=== PATIENT | male | born 1975 | race Caucasian/White ===

== ENCOUNTER 2020-03-19 21:44 | Emergency (ER) | payer BC, OTHER ==
[~2020-03-19] VITALS: Ht 190.5 cm; Wt 102.0 kg
[2020-03-19] MEDS ORDERED: GNP200CA2 PO (21:49)
[2020-03-19] MEDS ORDERED: MUCI1TAB16 PO (21:49)
[2020-03-19] MEDS ORDERED: GI COCKTAIL 50ML BTL(HYOSCYAMINE/MAALOX/LIDOCAINE VISCOUS)(1:3:1) PO ONE (22:45)
[2020-03-19] MEDS ORDERED: ASPIRIN 81 MG CHEW TABLET PO ONE (22:45)
[2020-03-19] MEDS ORDERED: METOCLOPRAMIDE INJ 10MG/2ML VIAL (J2765 PER 1) IV ONE (22:45)
[2020-03-19] MEDS ORDERED: NS 1,000 ML IV ONE (22:45)
[2020-03-19 23:00] LABS: BASO # 0.1 10^3/uL (0.0-0.2); BASO % 0.5 % (0.0-1.0); EOS # 0.2 10^3/uL (0.0-0.5); EOS % 1.6 % (0.0-3.0); HEMATOCRIT 44.6 % (42.0-52.0); HEMOGLOBIN 15.4 g/dl (13.5-17.5); LYMPH # 3.5 10^3/uL (1.5-5.0); LYMPH % 30.9 % (24.0-44.0); MEAN CORPUSCULAR HEMOGLOBIN 31.3 pg (27.0-33.0); MEAN CORPUSCULAR HGB CONC 34.5 g/dl (32.0-36.5); MEAN CORPUSCULAR VOLUME 90.7 fl (80.0-96.0); MONO # 0.7 10^3/uL (0.0-0.8); NEUTROPHILS # 6.9 10^3/uL (1.5-8.5); NEUTROPHILS % 60.6 % (36.0-66.0); PLATELET COUNT, AUTOMATED 239 10^3/uL (150-450); RED BLOOD COUNT 4.92 10^6/uL (4.30-6.10); WHITE BLOOD COUNT 11.4 10^3/uL (4.0-10.0)
[2020-03-19] MEDS ORDERED: ISOVUE-370 76% 100ML VIAL As Ordered ONE (23:16)
[2020-03-19 23:19] LABS: ERYTHROCYTE SEDIMENTATION RATE 4 mm/hr (0-15)
[2020-03-19 23:37] LABS: ALBUMIN 3.6 GM/DL (3.2-5.2); ALT/SGPT 24 U/L (12-78); BILIRUBIN,DIRECT < 0.1 MG/DL (0.0-0.2); BILIRUBIN,TOTAL 0.4 MG/DL (0.2-1.0); BLOOD UREA NITROGEN 18 MG/DL (7-18); C REACTIVE PROTEIN QUANTITATIV < 0.30 MG/DL (0.00-0.30); CALCIUM LEVEL 8.7 MG/DL (8.5-10.1); CARBON DIOXIDE LEVEL 26 MEQ/L (21-32); CHLORIDE LEVEL 107 MEQ/L (98-107); CK-MB VALUE MASS < 1.0 NG/ML (<3.6); CPK CREATINE PHOSPHOKINASE 82 U/L (39-308); CREATININE FOR GFR 1.13 MG/DL (0.70-1.30); GLOMERULAR FILTRATION RATE > 60.0 (>60); GLUCOSE, FASTING 94 MG/DL (70-100); LIPASE 120 U/L (73-393); MB/CK RELATIVE INDEX 1.22 (< OR =4); POTASSIUM SERUM 3.9 MEQ/L (3.5-5.1); SODIUM LEVEL 138 MEQ/L (136-145); TOTAL PROTEIN 6.7 GM/DL (6.4-8.2); TROPONIN I < 0.02 NG/ML (< 0.10)
--- NOTE | 2020-03-20 00:11 | REPVR ---
PROCEDURE INFORMATION: Exam: CT Angiography Chest With Contrast Exam date and time: 03/19/2020 10:37 PM Age: 44 years old Clinical indication: Other: Cold/flu symptoms. Additional info: R/O pe TECHNIQUE: Imaging protocol: Computed tomographic angiography of the chest with intravenous contrast. 3D rendering: MIP and/or 3D reconstructed images were created by the technologist. Radiation optimization: All CT scans at this facility use at least one of these dose optimization techniques: automated exposure control; mA and/or kV adjustment per patient size (includes targeted exams where dose is matched to clinical indication); or iterative reconstruction. Contrast material: ISO; Contrast volume: 75 ml; Contrast route: AC; COMPARISON: CR PORTABLE CHEST X-RAY 03/19/2020 10:59 PM FINDINGS: Pulmonary arteries: Normal. No pulmonary emboli. Great vessels off aortic arch: Incidental aberrant right subclavian artery. Aorta: Suboptimal opacificatione of the aorta. No aortic aneurysm. Tracheobronchial tree: Visualized airway is unremarkable. Lungs: Mild paraseptal blebs in the upper lobes. Dependent atelectasis in the lung. No acute consolidation. Pleural space: Unremarkable. No pneumothorax. No pleural effusion. Heart: Unremarkable. No cardiomegaly. No pericardial effusion. Liver: Circumscribed fluid density lesion in the right hepatic lobe measuring 1.7 cm. Several other smaller hypodense lesions which are too small to further characterize measuring up to 6 mm. Lymph nodes: Unremarkable. No enlarged lymph nodes. Bones/joints: Unremarkable. No acute fracture. Soft tissues: Unremarkable. IMPRESSION: 1. No evidence of pulmonary embolism. 2. Several circumscribed fluid density lesions in the liver. No further follow-up is recommended for the largest hypodense lesion. In a low-risk patient, the smaller lesions are most likely to be benign and no further follow-up is recommended. In a high-risk patient, recommend follow-up MRI in 3-6 months (or earlier if warranted by the patient's specific clinical circumstances). 3. Mild emphysematous lung disease. Electronically signed by: Jurgen Aguiar On 03/20/2020 00:11:00 AM
[2020-03-20] MEDS ORDERED: BREAMIS10 MC (01:03)
[2020-03-20] MEDS ORDERED: PROAAER10 INH (01:03)
[2020-03-20] MEDS ORDERED: methylPREDNISolone INJ 125 MG/2 ML VIAL (J2930) IV ONE (01:15)
[2020-03-20] MEDS ORDERED: ALBUTEROL 90 MCG/ACT 8GM HFA INHALER INH ONE (01:15)
[2020-03-20 01:30] VITALS: BP 130/69
--- NOTE | 2020-03-20 02:29 | REP ---
Clinical: Acute chest pain . Comparison: None of the . Findings: The mediastinum and cardiac silhouette are stable and within normal limits for portable technique. The lung gresham are clear without acute consolidation, effusion, or pneumothorax. Skeletal structures are intact. Impression: No acute cardiopulmonary process appreciated. Electronically Signed by Joss Lerma MD 03/20/2020 02:20 A
--- NOTE | 2020-03-20 13:47 | ED PDOC ---
Post-Departure Follow-Up certified letter sent to pt re formal read of cta chest. please see report. obta in pcp name and fax and ensure follow up. if no pcp refer to [facility], fax and ensure pt has numbers mlg Faustino Parker MD Mar 20, 2020 13:47
--- NOTE | 2020-03-20 14:01 | ECGEPIP ---
[facility] - ED Test Date: 2020-03-19 Pat Name: GINNY FITZGERALD Department: Room: - Gender: Male [employer]: LUCAS : 1975 Requested By: JONATHAN Green Order Number: [id number] Reading MD: Nayla Cedillo Measurements Intervals [place] Rate: 71 P: 58 DC: 140 QRS: 7 QRSD: 98 T: 38 QT: 374 QTc: 408 Interpretive Statements SINUS RHYTHM NO PRIOR Electronically Signed on 03-20-2020 14:01:39 EDT by Nayla Cedillo
== END 2020-03-20 01:34 | disposition home or self-care (01) ==
LOC: M ED 21:44
DX: R51 Headache (principal); R07.89 Other chest pain; R06.09 Other forms of dyspnea; R05 Cough; F17.218 Nicotine dependence, cigarettes, with other nicotine-induced disorders
CPT/HCPCS: 36415; 71045; 71275; 80048; 80076; 82550; 82553; 83690; 84484; 85025; 85652; 86140; 87040; 93005; 93041; 94640; 94760; 96361; 96374; 96375; 99284; J2765; J2930; Q9967

== ENCOUNTER → 2020-03-23 | Outpatient (CLI) | payer BC, OTHER ==
[~2020-03-23] MED LIST: BREAMIS10 MC; GNP200CA2 PO; MUCI1TAB16 PO; PROAAER10 INH
== END ==
LOC: M LABSMTC 13:57
PROVIDERS: ATTEND Family Medicine
DX: Z11.59 Encounter for screening for other viral diseases (principal); Z20.828 Contact with and (suspected) exposure to other viral communicable diseases

== ENCOUNTER → 2020-03-25 | Outpatient (REF) | payer OTHER ==
[2020-03-25 17:30] LABS: BASO # 0.1 10^3/uL (0.0-0.2); BASO % 0.6 % (0.0-1.0); EOS # 0.2 10^3/uL (0.0-0.5); EOS % 1.7 % (0.0-3.0); HEMATOCRIT 48.1 % (42.0-52.0); HEMOGLOBIN 16.5 g/dl (13.5-17.5); LYMPH # 2.6 10^3/uL (1.5-5.0); LYMPH % 25.9 % (24.0-44.0); MEAN CORPUSCULAR HEMOGLOBIN 31.7 pg (27.0-33.0); MEAN CORPUSCULAR HGB CONC 34.3 g/dl (32.0-36.5); MEAN CORPUSCULAR VOLUME 92.3 fl (80.0-96.0); MONO # 0.4 10^3/uL (0.0-0.8); MONO % 4.3 % (0.0-5.0); NEUTROPHILS # 6.9 10^3/uL (1.5-8.5); NEUTROPHILS % 67.3 % (36.0-66.0); PLATELET COUNT, AUTOMATED 255 10^3/uL (150-450); RED BLOOD COUNT 5.21 10^6/uL (4.30-6.10); WHITE BLOOD COUNT 10.2 10^3/uL (4.0-10.0)
[2020-03-25 17:40] LABS: ALBUMIN 3.7 GM/DL (3.2-5.2); ALT/SGPT 21 U/L (12-78); BILIRUBIN,TOTAL 0.3 MG/DL (0.2-1.0); BLOOD UREA NITROGEN 11 MG/DL (7-18); CALCIUM LEVEL 8.7 MG/DL (8.5-10.1); CARBON DIOXIDE LEVEL 26 MEQ/L (21-32); CHLORIDE LEVEL 105 MEQ/L (98-107); CPK CREATINE PHOSPHOKINASE 69 U/L (39-308); CREATININE FOR GFR 0.98 MG/DL (0.70-1.30); FREE T4 1.08 NG/DL (0.76-1.46); GLOMERULAR FILTRATION RATE > 60.0 (>60); GLUCOSE, FASTING 86 MG/DL (70-100); POTASSIUM SERUM 4.1 MEQ/L (3.5-5.1); SODIUM LEVEL 138 MEQ/L (136-145); TOTAL PROTEIN 6.7 GM/DL (6.4-8.2)
[2020-03-28 00:07] LABS: Lyme Disease IgG/IgM Antibodie <0.91 ISR (0.00-0.90); Lyme Disease IgM Ab Quantitati <0.80 index (0.00-0.79)
== END ==
LOC: M LABDRWAD 16:45
PROVIDERS: ATTEND Physician Assistant
DX: M79.10 Myalgia, unspecified site (principal); R53.83 Other fatigue; J20.9 Acute bronchitis, unspecified

== ENCOUNTER → 2020-04-10 | Outpatient (REF) | payer OTHER ==
[2020-04-12 00:06] LABS: ANA (HEP2) Negative (.)
== END ==
LOC: M SFHCADAM 10:42
PROVIDERS: ATTEND Physician Assistant
DX: G43.009 Migraine without aura, not intractable, without status migrainosus (principal); M25.50 Pain in unspecified joint

== ENCOUNTER → 2020-04-28 | Outpatient (CLI) | payer BC, OTHER ==
--- NOTE | 2020-04-28 16:55 | REPVR ---
PROCEDURE INFORMATION: Exam: MR Head Without Contrast Exam date and time: 04/28/2020 4:15 PM Age: 44 years old Clinical indication: Pain; Headache; Migraine; Aura effect not specified; Does respond to medication; Severity not specified TECHNIQUE: Imaging protocol: MR of the head without contrast. COMPARISON: No relevant prior studies available. FINDINGS: Brain: There is no acute intracranial hemorrhage, cerebral edema, or midline shift. No restricted diffusion is present to suggest acute infarction. Ventricles: No hydrocephalus. Bones/joints: Unremarkable. Sinuses: Mild mucosal thickening and small mucous retention cysts are noted in the maxillary sinuses. Mastoid air cells: Normal as visualized. No mastoid effusion. Orbits: Unremarkable. Soft tissues: Unremarkable. IMPRESSION: No acute intracranial abnormality. Electronically signed by: Mt Mueller On 04/28/2020 16:55:20 PM
== END ==
LOC: M RAD 13:50
PROVIDERS: ATTEND Physician Assistant
DX: G43.009 Migraine without aura, not intractable, without status migrainosus (principal)

== ENCOUNTER → 2020-10-16 | Outpatient (CLI) | payer BC, OTHER ==
--- NOTE | 2020-10-16 16:29 | REP ---
INDICATION: LIVER LESION. COMPARISON: CT 03/19/2020. TECHNIQUE: Multiple sequences obtained in the axial coronal planes. IV contrast was not administered. FINDINGS: In the posterior segment of the right lobe of the liver there is a T2 hyperintense nodule oval in shape measuring 2.1 x 1.5 cm. This is essentially unchanged compared to the CT exam and is most consistent with a cyst. More anteriorly in the right lobe at the same level there is a presumed tiny cyst measuring 4-5 mm in diameter, also unchanged. A similar size hyperintensity 4-5 mm in diameter is also stable at the right dome of the liver. No other definite liver lesion is seen. The gallbladder is grossly unremarkable with no filling defect. There is no biliary dilatation. The spleen is normal in size with no intrinsic abnormality. The adrenal glands are normal. The pancreas is unremarkable with no pancreatic duct dilatation or evidence of mass. There is a cyst of the lower pole of the left kidney laterally which measures approximately 1.4 cm in diameter. A subcentimeter cyst is seen anteriorly in the left upper pole. There is no hydronephrosis. There is no adenopathy or free fluid in the abdomen. IMPRESSION: In the posterior segment of the right lobe of the liver a T2 hyperintense nodule is most consistent with a cyst. It appears unchanged in size, measuring approximately 2.1 x 1.5 cm. Two subcentimeter hyperintense nodules in the right lobe of the liver, also likely representing cysts, are stable. There are 2 left renal cysts. There are no other significant findings. Based on imaging characteristics no follow-up is needed. Follow-up should be based on clinical grounds. <Electronically signed by Sundeep Galvin > 10/16/20 1211
== END ==
LOC: M RAD 06:39
PROVIDERS: ATTEND Physician Assistant
DX: K76.89 Other specified diseases of liver (principal); N28.1 Cyst of kidney, acquired

== ENCOUNTER → 2020-12-23 | Outpatient (CLI) | payer BC, OTHER ==
[~2020-12-23] MED LIST changes: -GNP200CA2 PO; +IBUP200C90 PO
--- NOTE | 2020-12-24 05:25 | REP ---
INDICATION: NECK PAIN. COMPARISON: None. TECHNIQUE: AP, lateral, bilateral oblique, flexion/extension, and open mouth views of the cervical spine. FINDINGS: Alignment and lordosis maintained. Vertebral bodies intact. Disc spaces are normal. No acute fracture/compression injury or subluxation. No significant degenerative changes. Open mouth view demonstrates normal C1-C2 articulation and odontoid process. Oblique views demonstrate patent neural foramen. IMPRESSION: Age-appropriate cervical spine series. <Electronically signed by Joss Lerma > 12/24/20 [id number]
== END ==
LOC: M ADAMS 09:01
PROVIDERS: ATTEND Physician Assistant
DX: M54.2 Cervicalgia (principal)

== ENCOUNTER → 2020-12-23 | Outpatient (REF) | payer OTHER ==
[2020-12-23 13:54] LABS: BASO # 0.1 10^3/uL (0.0-0.2); BASO % 0.7 % (0.0-1.0); EOS # 0.2 10^3/uL (0.0-0.5); EOS % 2.2 % (0.0-3.0); HEMATOCRIT 45.9 % (42.0-52.0); HEMOGLOBIN 15.4 g/dl (13.5-17.5); LYMPH # 1.9 10^3/uL (1.5-5.0); LYMPH % 21.1 % (24.0-44.0); MEAN CORPUSCULAR HEMOGLOBIN 30.6 pg (27.0-33.0); MEAN CORPUSCULAR HGB CONC 33.6 g/dl (32.0-36.5); MEAN CORPUSCULAR VOLUME 91.3 fl (80.0-96.0); MONO # 0.7 10^3/uL (0.0-0.8); MONO % 8.1 % (0.0-5.0); NEUTROPHILS # 6.1 10^3/uL (1.5-8.5); NEUTROPHILS % 67.6 % (36.0-66.0); PLATELET COUNT, AUTOMATED 221 10^3/uL (150-450); RED BLOOD COUNT 5.03 10^6/uL (4.30-6.10)
[2020-12-23 14:11] LABS: BLOOD UREA NITROGEN 15 MG/DL (7-18); C REACTIVE PROTEIN QUANTITATIV 0.38 MG/DL (0.00-0.30); CALCIUM LEVEL 9.4 MG/DL (8.5-10.1); CARBON DIOXIDE LEVEL 26 MEQ/L (21-32); CHLORIDE LEVEL 107 MEQ/L (98-107); CREATININE FOR GFR 1.04 MG/DL (0.70-1.30); GLOMERULAR FILTRATION RATE > 60.0 (>60); GLUCOSE, FASTING 86 MG/DL (70-100); POTASSIUM SERUM 4.1 MEQ/L (3.5-5.1); SODIUM LEVEL 141 MEQ/L (136-145)
[2020-12-23 15:11] LABS: ERYTHROCYTE SEDIMENTATION RATE 5 mm/hr (0-15)
== END ==
LOC: M SFHCADAM 08:55
PROVIDERS: ATTEND Physician Assistant
DX: M54.2 Cervicalgia (principal)

== ENCOUNTER 2022-04-20 10:46 | Emergency (ER) | payer BC, OTHER ==
[~2022-04-20] VITALS: Ht 193 cm; Wt 110.0 kg
[2022-04-20] MEDS ORDERED: IBUP200C28 PO (10:58)
[2022-04-20] MEDS ORDERED: KETOROLAC 30 MG/ML 1ML VIAL IM ONE (12:30)
[2022-04-20 13:00] VITALS: BP 144/84
== END 2022-04-20 13:02 | disposition home or self-care (01) ==
LOC: M ED 10:46
DX: S90.32XA Contusion of left foot, initial encounter (principal); W49.9XXA Exposure to other inanimate mechanical forces, initial encounter; F17.200 Nicotine dependence, unspecified, uncomplicated; Y92.9 Unspecified place or not applicable; Y93.9 Activity, unspecified; Y99.9 Unspecified external cause status
CPT/HCPCS: 73630; 96372; 99284; J1885

== ENCOUNTER 2022-04-28 16:56 | Emergency (ER) | payer BC, OTHER ==
[~2022-04-28] VITALS: Ht 193 cm; Wt 106.8 kg
[~2022-04-28 16:56] MED LIST changes: +IBUP200C28 PO
[2022-04-28 16:57] VITALS: BP 122/66
== END 2022-04-28 21:03 | disposition left against medical advice (07) ==
LOC: M ED 16:56
DX: Z53.21 Procedure and treatment not carried out due to patient leaving prior to being seen by health care provider (principal)

== ENCOUNTER → 2022-05-05 | Outpatient (CLI) | payer BC, OTHER ==
[~2022-05-05] MED LIST changes: +GASTROGRAFIN SOLUTION 30ML (Q9963) As Ordered ONE; +ISOVUE-370 76% 100ML VIAL As Ordered ONE
[2022-05-05 13:53] LABS: BASO # 0.1 10^3/uL (0.0-0.2); BASO % 0.9 % (0.0-1.0); EOS # 0.2 10^3/uL (0.0-0.5); EOS % 1.7 % (0.0-3.0); HEMATOCRIT 43.7 % (42.0-52.0); HEMOGLOBIN 15.2 g/dl (13.5-17.5); LYMPH # 2.6 10^3/uL (1.5-5.0); LYMPH % 28.4 % (24.0-44.0); MEAN CORPUSCULAR HGB CONC 34.8 g/dl (32.0-36.5); MONO # 0.5 10^3/uL (0.0-0.8); MONO % 5.6 % (2.0-8.0); NEUTROPHILS # 5.9 10^3/uL (1.5-8.5); NEUTROPHILS % 63.2 % (36.0-66.0); PLATELET COUNT, AUTOMATED 240 10^3/uL (150-450); RED BLOOD COUNT 4.91 10^6/uL (4.30-6.10); WHITE BLOOD COUNT 9.3 10^3/uL (4.0-10.0)
[2022-05-05 14:24] LABS: ALBUMIN 3.5 GM/DL (3.2-5.2); ALT/SGPT 23 U/L (12-78); BILIRUBIN,TOTAL 0.3 MG/DL (0.2-1.0); BLOOD UREA NITROGEN 10 MG/DL (7-18); CALCIUM LEVEL 8.3 MG/DL (8.5-10.1); CARBON DIOXIDE LEVEL 26 MEQ/L (21-32); CHLORIDE LEVEL 108 MEQ/L (98-107); GLOMERULAR FILTRATION RATE > 60.0 (>60); GLUCOSE, FASTING 83 MG/DL (70-100); POTASSIUM SERUM 4.5 MEQ/L (3.5-5.1); SODIUM LEVEL 138 MEQ/L (136-145); TOTAL PROTEIN 6.5 GM/DL (6.4-8.2)
== END ==
LOC: M RAD 11:56
PROVIDERS: ATTEND Physician Assistant
DX: K62.5 Hemorrhage of anus and rectum (principal); K63.5 Polyp of colon; R10.13 Epigastric pain
CPT/HCPCS: 36415; 74177; 80053; 85025; Q9963; Q9967

== ENCOUNTER → 2022-05-05 | Outpatient (REF) | payer OTHER ==
[~2022-05-05] MED LIST changes: -GASTROGRAFIN SOLUTION 30ML (Q9963) As Ordered ONE; -ISOVUE-370 76% 100ML VIAL As Ordered ONE
== END ==
LOC: M SFHCADAM 10:35
PROVIDERS: ATTEND Physician Assistant
DX: K62.5 Hemorrhage of anus and rectum (principal); K63.5 Polyp of colon; R10.13 Epigastric pain; Z53.9 Procedure and treatment not carried out, unspecified reason

== ENCOUNTER → 2022-06-10 | Outpatient (CLI) | payer BC, OTHER ==
[2022-06-10 16:40] LABS: FREE THYROXINE INDEX 3.3 % (1.4-3.8); THYROID STIMULATING HORMONE 0.971 uIU/ML (0.358-3.740); THYROXINE (T4) 10.3 UG/DL (4.5-12.0)
[2022-06-10 17:18] LABS: FOLATE 6.5 NG/ML
[2022-06-10 17:39] LABS: HEMOGLOBIN A1c 5.2 %
== END ==
LOC: M PLALAB 12:01
PROVIDERS: ATTEND Psychiatry & Neurology Neurology
DX: E07.9 Disorder of thyroid, unspecified (principal); E11.9 Type 2 diabetes mellitus without complications; E53.8 Deficiency of other specified B group vitamins

== ENCOUNTER → 2022-07-24 | Outpatient (CLI) | payer BC, OTHER ==
[~2022-07-24] MED LIST changes: +TOPI1CAP8 PO
== END ==
LOC: M LABSMTC 11:00
PROVIDERS: ATTEND Anesthesiology
DX: Z01.818 Encounter for other preprocedural examination (principal); Z11.52 Encounter for screening for COVID-19

== ENCOUNTER 2022-07-28 08:22 | Day surgery (SDC) | payer BC, OTHER ==
[~2022-07-28] VITALS: Ht 193 cm; Wt 107.5 kg
[~2022-07-28 08:22] MED LIST changes: +LIDOCAINE 2% 100MG/5ML SDV (FOR ANES.) As Ordered ONE; +NS 1,000 ML IV ONE; +fentaNYL 100 MCG/2 ML INJECTION As Ordered ONE; +propofoL 500 MG/50 ML VIAL As Ordered ONE
[2022-07-28] MEDS ORDERED: propofoL 200 MG/20 ML VIAL As Ordered ONE (09:52)
[2022-07-28 10:20] VITALS: BP 118/68
== END 2022-07-28 10:24 | disposition home or self-care (01) ==
LOC: M OPP 08:22
PROVIDERS: ATTEND Surgery
DX: K63.5 Polyp of colon (principal); K62.5 Hemorrhage of anus and rectum; K31.A0 Gastric intestinal metaplasia, unspecified; K21.00 Gastro-esophageal reflux disease with esophagitis, without bleeding; F17.200 Nicotine dependence, unspecified, uncomplicated; Z79.899 Other long term (current) drug therapy
CPT/HCPCS: 43239; 45385; 88305; J3010

== ENCOUNTER → 2024-05-22 | Outpatient (CLI) | payer BC ==
[~2024-05-22] MED LIST changes: -LIDOCAINE 2% 100MG/5ML SDV (FOR ANES.) As Ordered ONE; -NS 1,000 ML IV ONE; -fentaNYL 100 MCG/2 ML INJECTION As Ordered ONE; -propofoL 500 MG/50 ML VIAL As Ordered ONE
== END ==
LOC: M PLAIMG 16:15
PROVIDERS: ATTEND Physician Assistant Medical
DX: M25.722 Osteophyte, left elbow (principal); M25.522 Pain in left elbow

== ENCOUNTER → 2024-06-06 | Outpatient (REF) | payer OTHER ==
[2024-06-06 18:55] LABS: APPEARANCE, URINE CLEAR (CLEAR); BACTERIA, URINE AUTO 1+ (NEGATIVE); BILIRUBIN, URINE AUTO NEGATIVE (NEGATIVE); BLOOD, URINE BLOOD NEGATIVE (NEGATIVE); COLOR, URINE YELLOW (YELLOW); GLUCOSE, URINE (UA) AUTO NEGATIVE (NEGATIVE); KETONE, URINE AUTO NEGATIVE (NEGATIVE); LEUKOCYTE ESTERASE, URINE AUTO TRACE (NEGATIVE); NITRITE, URINE AUTO NEGATIVE (NEGATIVE); PROTEIN, URINE AUTO NEGATIVE (NEGATIVE); RBC, URINE AUTO 0 /HPF (0-3); SPECIFIC GRAVITY URINE AUTO 1.005 (1.002-1.035); SQUAMOUS EPITHELIAL CELL UR AU 0 /HPF (0-6); UROBILINOGEN, URINE AUTO 0.2 mg/dL (0.0-2.0); WBC, URINE AUTO 3 /HPF (0-3)
== END ==
LOC: M SFHCADAM 17:07
PROVIDERS: ATTEND Physician Assistant
DX: R35.0 Frequency of micturition (principal)

== ENCOUNTER → 2024-06-13 | Outpatient (REF) | payer BC ==
[2024-06-13 18:03] LABS: BASO # 0.1 10^3/uL (0.0-0.2); BASO % 0.6 % (0.0-1.0); EOS # 0.2 10^3/uL (0.0-0.5); HEMATOCRIT 43.1 % (42.0-52.0); HEMOGLOBIN 14.6 g/dl (13.5-17.5); LYMPH # 2.9 10^3/uL (1.5-5.0); LYMPH % 27.6 % (24.0-44.0); MEAN CORPUSCULAR HEMOGLOBIN 30.5 pg (27.0-33.0); MEAN CORPUSCULAR HGB CONC 33.9 g/dl (32.0-36.5); MEAN CORPUSCULAR VOLUME 90.2 fl (80.0-96.0); MONO # 0.6 10^3/uL (0.0-0.8); NEUTROPHILS # 6.8 10^3/uL (1.5-8.5); NEUTROPHILS % 63.5 % (36.0-66.0); PLATELET COUNT, AUTOMATED 262 10^3/uL (150-450); RED BLOOD COUNT 4.78 10^6/uL (4.30-6.10); WHITE BLOOD COUNT 10.7 10^3/uL (4.0-10.0)
[2024-06-13 18:16] LABS: ERYTHROCYTE SEDIMENTATION RATE 11 mm/hr (0-15)
[2024-06-13 18:23] LABS: PSA SCREENING 2.07 NG/ML (< 4.00)
[2024-06-13 18:32] LABS: ALBUMIN 3.5 G/DL (3.2-5.2); ALKALINE PHOSPHATASE 92 U/L (46-116); ALT/SGPT 20 U/L (7.0-40); AST/SGOT < 8 U/L (<34); BILIRUBIN,TOTAL 0.2 MG/DL (0.3-1.2); BLOOD UREA NITROGEN 10 MG/DL (9-23); CALCIUM LEVEL 8.5 MG/DL (8.5-10.1); CARBON DIOXIDE LEVEL 25 MMOL/L (20-31); CHLORIDE LEVEL 107 MMOL/L (98-107); CHOLESTEROL LEVEL 170 MG/DL (<200); CHOLESTEROL RISK RATIO 5.96 (<5); CREATININE FOR GFR 0.97 MG/DL (0.70-1.30); GLOMERULAR FILTRATION RATE > 60.0 (>60); GLUCOSE, FASTING 97 MG/DL (60-100); HDL CHOLESTEROL 28.5 MG/DL (>40); LDL CHOLESTEROL 103.9 MG/DL (<100); NON-HDL-C 141.5 MG/DL; POTASSIUM SERUM 3.9 MMOL/L (3.5-5.1); SODIUM LEVEL 140 MMOL/L (136-145); TOTAL PROTEIN 6.1 G/DL (5.7-8.2); TRIGLYCERIDES LEVEL 188 MG/DL (<150)
[2024-06-13 18:44] LABS: HEMOGLOBIN A1c 5.1 % (4.0-6.0)
== END ==
LOC: M SFHCADAM 15:24
PROVIDERS: ATTEND Physician Assistant
DX: R35.0 Frequency of micturition (principal); M25.50 Pain in unspecified joint; F17.210 Nicotine dependence, cigarettes, uncomplicated; Z13.220 Encounter for screening for lipoid disorders; Z68.28 Body mass index [BMI] 28.0-28.9, adult; Z13.1 Encounter for screening for diabetes mellitus; R39.14 Feeling of incomplete bladder emptying; N40.1 Benign prostatic hyperplasia with lower urinary tract symptoms
CPT/HCPCS: 80053; 80061; 83036; 85025; 85652; 86140; 86618; G0103

== ENCOUNTER → 2024-06-27 | Outpatient (REF) | payer BC ==
[2024-06-27 18:27] LABS: APPEARANCE, URINE CLEAR (CLEAR); BACTERIA, URINE AUTO NEGATIVE (NEGATIVE); BILIRUBIN, URINE AUTO NEGATIVE (NEGATIVE); BLOOD, URINE BLOOD NEGATIVE (NEGATIVE); COLOR, URINE YELLOW (YELLOW); GLUCOSE, URINE (UA) AUTO NEGATIVE (NEGATIVE); KETONE, URINE AUTO NEGATIVE (NEGATIVE); LEUKOCYTE ESTERASE, URINE AUTO NEGATIVE (NEGATIVE); NITRITE, URINE AUTO NEGATIVE (NEGATIVE); PROTEIN, URINE AUTO NEGATIVE (NEGATIVE); RBC, URINE AUTO 0 /HPF (0-3); SPECIFIC GRAVITY URINE AUTO 1.009 (1.002-1.035); SQUAMOUS EPITHELIAL CELL UR AU 0 /HPF (0-6); UROBILINOGEN, URINE AUTO 0.2 mg/dL (0.0-2.0); WBC, URINE AUTO 1 /HPF (0-3)
== END ==
LOC: M SFHCADAM 16:47
PROVIDERS: ATTEND Physician Assistant
DX: R35.0 Frequency of micturition (principal)

== ENCOUNTER → 2024-07-01 | Outpatient (CLI) | payer BC | LOC: M RAD 14:01 | PROVIDERS: ATTEND Physician Assistant | DX: R35.0 Frequency of micturition (principal) ==

== ENCOUNTER → 2024-07-23 | Outpatient (CLI) | payer BC | LOC: M RAD 11:08 | PROVIDERS: ATTEND Physician Assistant | DX: N40.1 Benign prostatic hyperplasia with lower urinary tract symptoms (principal); N28.1 Cyst of kidney, acquired; R35.0 Frequency of micturition ==

== ENCOUNTER → 2025-08-01 | Outpatient (REF) | payer BC ==
[2025-08-01 17:42] LABS: BASO # 0.1 10^3/uL (0.0-0.2); BASO % 0.3 % (0.0-1.0); EOS # 0.1 10^3/uL (0.0-0.5); EOS % 0.8 % (0.0-3.0); LYMPH # 2.8 10^3/uL (1.5-5.0); LYMPH % 18.6 % (24.0-44.0); MONO # 0.7 10^3/uL (0.0-0.8); MONO % 4.4 % (2.0-8.0); NEUTROPHILS # 11.3 10^3/uL (1.5-8.5); NEUTROPHILS % 75.5 % (36.0-66.0); PLATELET COUNT, AUTOMATED 307 10^3/uL (150-450)
[2025-08-01 17:46] LABS: ALT/SGPT 17 U/L (7.0-40); AST/SGOT 8 U/L (<34); CALCIUM LEVEL 9.7 MG/DL (8.5-10.1); CARBON DIOXIDE LEVEL 28 MMOL/L (20-31); CHLORIDE LEVEL 105 MMOL/L (98-107); CHOLESTEROL LEVEL 212 MG/DL (<200); CHOLESTEROL RISK RATIO 5.53 (<5); CREATININE FOR GFR 0.90 MG/DL (0.70-1.30); GLOMERULAR FILTRATION RATE > 90.0 (>60); LDL CHOLESTEROL 137.5 MG/DL (<100); NON-HDL-C 173.7 MG/DL; POTASSIUM SERUM 4.4 MMOL/L (3.5-5.1); PSA SCREENING 3.06 NG/ML (< 4.00); SODIUM LEVEL 141 MMOL/L (136-145); TRIGLYCERIDES LEVEL 181 MG/DL (<150)
== END ==
LOC: M SFHCADAM 14:07
PROVIDERS: ATTEND Physician Assistant
DX: Z00.00 Encounter for general adult medical examination without abnormal findings (principal); N40.1 Benign prostatic hyperplasia with lower urinary tract symptoms; F17.210 Nicotine dependence, cigarettes, uncomplicated; E78.6 Lipoprotein deficiency
CPT/HCPCS: 80053; 80061; 85025; G0103